=== PATIENT | female | born 1955 | race Native Hawaiian/Other Pacific Islander ===

== ENCOUNTER 2017-01-28 12:33 | Emergency (ER) | payer BC ==
[~2017-01-28] VITALS: Ht 152.4 cm; Wt 62.0 kg
[~2017-01-28 12:33] MED LIST: ACTOS15 MG PO; ALPRAZOLAM0.25 M2 PO; ASPIR-TRIN325 M1 PO; ASPIRIN81 M2 PO; CORDARONE200 MG PO; FAMOTIDINE20 MG PO; FLEXERIL10 MG PO; FORTAMET500 M1 PO; GLUCOPHAGE1000 MG PO; HYDROCHLOROTH12.5 M1 PO; JANUVIA25 M1 PO; LIPITOR10 MG PO; MAG-OXIDE400 MG PO; MICROZIDE12.5 M1 PO; MOTRIN800 MG PO; PriLOSEC PO; SERTRALINE HCL50 MG PO; TOPROL XL6.25 MG PO; ZESTRIL2.5 MG PO
[2017-01-28] MEDS ORDERED: HYDROCHLOROTHIA25 MG PO (13:09)
[2017-01-28] MEDS ORDERED: LISINOPRIL20 MG PO (13:10)
[2017-01-28] MEDS ORDERED: RANITIDINE HCL300 MG PO (13:11)
[2017-01-28] MEDS ORDERED: DONEPEZIL HCL5 MG PO (13:12)
[2017-01-28] MEDS ORDERED: TOPROL XL50 MG PO (13:12)
[2017-01-28] MEDS ORDERED: LEVOTHYROXINE50 MCG PO (13:12)
[2017-01-28] MEDS ORDERED: ASPIRIN325 MG PO (13:13)
[2017-01-28] MEDS ORDERED: ZOLOFT50 MG PO (13:22)
[2017-01-28 13:37] LABS: HEMATOCRIT 36.6 % (36.0-46.0); IMMATURE GRANULOCYTE (%) 0.2 % (0.0-0.7); INSTRUMENT ABS NEUTROPHIL CT 2.7 K/uL; LYMPHOCYTE COUNT 0.7 K/uL (1.0-2.8); MCV 90.8 FL (83-99); MEAN PLAT.VOLUME 9.3 uM^3 (9.5-12.4); MONOCYTE (%) 15.7 % (3-12); MONOCYTE COUNT 0.7 K/uL (0-0.8); NEUTROPHIL COUNT 2.7 K/uL (1.8-6.4); PLATELET COUNT 175 K/uL (156-360); RBC DIS.WIDTH-CV 12.7 % (11.8-14.6); RBC DIS.WIDTH-SD 42.5 % (39-53); RED BLOOD COUNT 4.03 M/uL (3.80-5.20); WHITE BLOOD COUNT 4.1 K/uL (4.1-10.2)
[2017-01-28 13:47] LABS: CHLORIDE 105 mEq/L (99-109); POTASSIUM 4.3 mEq/L (3.7-5.4); SODIUM 139 mEq/L (136-147)
[2017-01-28 13:48] LABS: GLUCOSE 103 mg/dL (70-99)
[2017-01-28 13:50] LABS: ANION GAP 8 MEQ/L (2-14)
[2017-01-28 13:52] LABS: GFR ESTIMATE (CALCULATED) > 59 mL/min/
[2017-01-28 13:53] LABS: UREA NITROGEN (BUN) 17 mg/dL (9-23)
[2017-01-28] MEDS ORDERED: INDOCIN50 MG PO (14:34)
[2017-01-28] MEDS ORDERED: TESSALON PERLE100 MG PO (14:34)
[2017-01-28 14:59] VITALS: BP 114/75
== END 2017-01-28 15:01 | disposition home or self-care (01) ==
LOC: EME 12:33
PROVIDERS: Physician Assistant
DX: B34.9 Viral infection, unspecified (principal); J40 Bronchitis, not specified as acute or chronic; F32.9 Major depressive disorder, single episode, unspecified; I10 Essential (primary) hypertension; E11.9 Type 2 diabetes mellitus without complications; Z87.891 Personal history of nicotine dependence
CPT/HCPCS: 71020; 80048; 85025; 93005; 99281; 99284

== ENCOUNTER 2017-09-17 17:05 | Emergency (ER) | payer BC ==
[~2017-09-17] VITALS: Ht 152.4 cm; Wt 64.2 kg
[~2017-09-17 17:05] MED LIST changes: +ASPIRIN325 MG PO; +DONEPEZIL HCL5 MG PO; +HYDROCHLOROTHIA25 MG PO; +INDOCIN50 MG PO; +LEVOTHYROXINE50 MCG PO; +LISINOPRIL20 MG PO; +RANITIDINE HCL300 MG PO; +TESSALON PERLE100 MG PO; +TOPROL XL50 MG PO; +ZOLOFT50 MG PO
[2017-09-17 17:52] LABS: HEMATOCRIT 39.9 % (36.0-46.0); MCH 28.3 PG (29.0-34.0); MCHC 32.6 G/DL (30.0-36.0); MCV 86.9 FL (83-99); PLATELET COUNT 194 K/uL (156-360); RBC DIS.WIDTH-CV 12.4 % (11.8-14.6); RBC DIS.WIDTH-SD 39.3 % (39-53); RED BLOOD COUNT 4.59 M/uL (3.80-5.20); WHITE BLOOD COUNT 11.3 K/uL (4.1-10.2)
[2017-09-17 18:06] LABS: CHLORIDE 105 mEq/L (99-109); POTASSIUM 4.4 mEq/L (3.7-5.4); SODIUM 137 mEq/L (136-147)
[2017-09-17 18:08] LABS: GLUCOSE 222 mg/dL (70-99); TOTAL PROTEIN 7.3 g/dL (6.4-8.3)
[2017-09-17 18:10] LABS: TOTAL BILIRUBIN 0.4 mg/dL (0.0-1.0)
[2017-09-17 18:11] LABS: ALKALINE PHOSPHATASE 53 IU/L (3-129)
[2017-09-17 18:12] LABS: CREATININE 0.9 mg/dL (0.6-1.3); GFR ESTIMATE (CALCULATED) > 59 mL/min/
[2017-09-17 18:13] LABS: AST (GOT) 33 IU/L (2-34); UREA NITROGEN (BUN) 23 mg/dL (9-23)
[2017-09-17 18:15] LABS: ALT (GPT) 54 IU/L (3-49)
[2017-09-17 19:12] LABS: APPEARANCE CLEAR ((CLEAR)); BILIRUBIN NEGATIVE; BLOOD NEGATIVE; COLOR YELLOW ((YELLOW)); GLUCOSE (STRIP) >=500; KETONES NEGATIVE; LEUKOCYTES NEGATIVE; NITRITE NEGATIVE; PROTEIN (STRIP) NEGATIVE; SPECIFIC GRAVITY 1.018 (1.000-1.030); UCUL ADDED? NO; UROBILINOGEN 0.2 MG/DL (0.2-1.0)
[2017-09-17 22:48] VITALS: BP 102/77
== END 2017-09-17 22:50 | disposition home or self-care (01) ==
LOC: EME 17:05
DX: K52.9 Noninfective gastroenteritis and colitis, unspecified (principal); I10 Essential (primary) hypertension; E11.9 Type 2 diabetes mellitus without complications; F41.9 Anxiety disorder, unspecified; F32.9 Major depressive disorder, single episode, unspecified; Z79.82 Long term (current) use of aspirin; Z79.84 Long term (current) use of oral hypoglycemic drugs; Z87.891 Personal history of nicotine dependence
CPT/HCPCS: 74177; 80053; 81003; 85027; 99281; 99284; J2270; J2405; J7030

== ENCOUNTER 2018-02-19 21:15 | Emergency (ER) | payer BC ==
[~2018-02-19] VITALS: Ht 154.9 cm; Wt 64.0 kg
[2018-02-19] MEDS ORDERED: TRAMADOL HCL50 MG PO (22:47)
[2018-02-19] MEDS ORDERED: MOBIC7.5 MG PO (22:48)
[2018-02-19 23:15] VITALS: BP 154/88
== END 2018-02-19 23:16 | disposition home or self-care (01) ==
LOC: EME 21:15
DX: S93.402A Sprain of unspecified ligament of left ankle, initial encounter (principal); W20.8XXA Other cause of strike by thrown, projected or falling object, initial encounter; Y99.0 Civilian activity done for income or pay; M77.32 Calcaneal spur, left foot; Z79.82 Long term (current) use of aspirin; Z79.84 Long term (current) use of oral hypoglycemic drugs; Z87.891 Personal history of nicotine dependence
CPT/HCPCS: 73610; 99281; 99284

== ENCOUNTER 2018-04-16 14:44 | Observation (INO) | payer BC ==
[~2018-04-16] VITALS: Ht 152.4 cm; Wt 63.5 kg
[~2018-04-16 14:44] MED LIST changes: +MOBIC7.5 MG PO; +TRAMADOL HCL50 MG PO
[2018-04-16 15:43] LABS: HEMATOCRIT 36.8 % (36.0-46.0); HEMOGLOBIN 12.2 G/DL (11.9-15.5); MCH 29.1 PG (29.0-34.0); MCHC 33.2 G/DL (30.0-36.0); MCV 87.8 FL (83-99); PLATELET COUNT 193 K/uL (156-360); RBC DIS.WIDTH-CV 12.5 % (11.8-14.6); RBC DIS.WIDTH-SD 39.7 % (39-53); RED BLOOD COUNT 4.19 M/uL (3.80-5.20); WHITE BLOOD COUNT 5.8 K/uL (4.1-10.2)
[2018-04-16 16:03] LABS: TROP-I INTERPRETATION NEGATIVE; TROPONIN-I < 0.01 ng/mL (0.0-0.30)
[2018-04-16 16:11] LABS: CHLORIDE 105 MEQ/L (99-109); DIRECT BILIRUBIN 0.1 mg/dL (0.0-0.3); POTASSIUM 4.3 MEQ/L (3.7-5.4); SODIUM 140 MEQ/L (136-147); TOTAL BILIRUBIN 0.3 MG/DL (0.0-1.0)
[2018-04-16 16:17] LABS: ALKALINE PHOSPHATASE 54 IU/L (3-129); ALT (GPT) 11 IU/L (3-49); AST (GOT) 17 IU/L (2-34); CREATININE 0.8 MG/DL (0.6-1.3); GFR ESTIMATE (CALCULATED) > 59 mL/min/; GLUCOSE 86 mg/dL (70-99); LIPASE 63 U/L (1.0-51.0); TOTAL PROTEIN 6.2 G/DL (6.4-8.3); UREA NITROGEN (BUN) 24 mg/dL (9-23)
[2018-04-16 17:46] LABS: APPEARANCE CLEAR ((CLEAR)); BILIRUBIN NEGATIVE; BLOOD NEGATIVE; COLOR COLORLESS ((YELLOW)); GLUCOSE (STRIP) NEGATIVE; KETONES NEGATIVE; LEUKOCYTES NEGATIVE; NITRITE NEGATIVE; PROTEIN (STRIP) NEGATIVE; SPECIFIC GRAVITY 1.008 (1.000-1.030); UCUL ADDED? NO; UROBILINOGEN 0.2 MG/DL (0.2-1.0)
[2018-04-16 17:56] LABS: AMPHETAMINE NEGATIVE (500 ng/mL); BARBITURATES NEGATIVE (200 ng/mL); BENZODIAZEPINES NEGATIVE (150 ng/mL); BUPRENORPHINE NEGATIVE (10 ng/mL); COCAINE NEGATIVE (150 ng/mL); METHADONE NEGATIVE (200 ng/mL); METHAMPHETAMINE NEGATIVE (500 ng/mL); OPIATES (MORPHINE) NEGATIVE (100 ng/mL); OXYCODONE NEGATIVE (100 ng/mL); PHENCYCLIDINE NEGATIVE (25 ng/mL); PROPOXYPHENE NEGATIVE (300 ng/mL); THC CANNABINOIDS NEGATIVE (50 ng/mL); TRICYCLIC ANTIDEPRESSANTS NEGATIVE (300 ng/mL)
[2018-04-16 19:05] LABS: TROP-I INTERPRETATION NEGATIVE; TROPONIN-I < 0.01 ng/mL (0.0-0.30)
[2018-04-16] MEDS ORDERED: LO-DOSE ASPIRIN81 M1 PO (19:47)
[2018-04-16] MEDS ORDERED: ZESTORETIC 20-1 EAC1 PO (19:48)
[2018-04-16] MEDS ORDERED: FISH OIL 1,0001 EAC7 PO (19:50)
[2018-04-16] MEDS ORDERED: CENTRUM SILVER1 EAC4 PO (19:50)
[2018-04-16] MEDS ORDERED: VITAMIN D31000 UNI2 PO (19:50)
[2018-04-16] MEDS ORDERED: LYRICA50 MG PO (19:51)
[2018-04-16] MEDS ORDERED: ALPHAGAN P100 DROP/5 RIGHT EYE (19:51)
[2018-04-16 23:18] VITALS: BP 143/69
[2018-04-17 01:54] LABS: TROP-I INTERPRETATION NEGATIVE; TROPONIN-I < 0.01 ng/mL (0.0-0.30)
[2018-04-17 03:42] VITALS: BP 116/58
[2018-04-17 07:22] VITALS: BP 134/69
[2018-04-17 10:56] LABS: TROP-I INTERPRETATION NEGATIVE; TROPONIN-I < 0.01 ng/mL (0.0-0.30)
[2018-04-17 11:31] VITALS: BP 97/64
[2018-04-17 15:24] VITALS: BP 105/68
[2018-04-17 16:51] VITALS: BP 123/65
== END 2018-04-17 18:22 | disposition home or self-care (01) ==
LOC: EME 14:44 → EDOF 20:04 → ENRESERV 21:00 → 4SOUTH 22:57
PROVIDERS: Family Medicine; Physician Assistant
DX: R07.89 Other chest pain (principal); I42.9 Cardiomyopathy, unspecified; E11.9 Type 2 diabetes mellitus without complications; E78.5 Hyperlipidemia, unspecified; I10 Essential (primary) hypertension; I49.3 Ventricular premature depolarization; I47.2 Ventricular tachycardia; F41.9 Anxiety disorder, unspecified; Z88.6 Allergy status to analgesic agent; Z87.891 Personal history of nicotine dependence; K82.8 Other specified diseases of gallbladder; Z86.73 Personal history of transient ischemic attack (TIA), and cerebral infarction without residual deficits
CPT/HCPCS: 71046; 76705; 80048; 80076; 81003; 83690; 84484; 85027; 93005; 99281; 99285; G0378